=== PATIENT | female | born 1990 | race Caucasian/White ===

== ENCOUNTER → 2017-12-23 | Outpatient (REF) | payer OTHER | LOC: M LAB REF 14:47 | DX: J02.9 Acute pharyngitis, unspecified (principal) | CPT/HCPCS: 87070 ==

== ENCOUNTER → 2018-03-17 | Outpatient (CLI) | payer OTHER ==
[2018-03-17 10:40] LABS: HEMOGLOBIN A1c 4.9 %
[2018-03-17 10:54] LABS: ALBUMIN 4.2 GM/DL (3.2-5.2); ALT/SGPT 30 U/L (12-78); BILIRUBIN,TOTAL 0.8 MG/DL (0.2-1.0); BLOOD UREA NITROGEN 10 MG/DL (7-18); CALCIUM LEVEL 9.1 MG/DL (8.5-10.1); CARBON DIOXIDE LEVEL 28 MEQ/L (21-32); CHLORIDE LEVEL 105 MEQ/L (98-107); CREATININE FOR GFR 0.82 MG/DL (0.55-1.30); GLOMERULAR FILTRATION RATE > 60.0 (>60); GLUCOSE, FASTING 94 MG/DL (70-100); POTASSIUM SERUM 4.4 MEQ/L (3.5-5.1); SODIUM LEVEL 140 MEQ/L (136-145); TOTAL PROTEIN 7.3 GM/DL (6.4-8.2)
== END ==
LOC: M SMT 08:53
PROVIDERS: ATTEND Family Medicine
DX: B37.0 Candidal stomatitis (principal)

== ENCOUNTER → 2019-05-01 | Outpatient (REF) | payer OTHER | LOC: M LAB REF 15:26 | PROVIDERS: ATTEND Physician Assistant | DX: J02.9 Acute pharyngitis, unspecified (principal) ==

== ENCOUNTER → 2020-03-18 | Outpatient (CLI) | payer OTHER ==
--- NOTE | 2020-03-18 16:42 | REP ---
INDICATION: EVAL FOR BONE CYST RT BIG TOE. COMPARISON: No comparison imaging is available.. TECHNIQUE: And axial, coronal, and sagittal imaging planes utilized. T1 and T2 weighted scans are included with and without fat saturation in the usual fashion. FINDINGS: There is heterogeneous low T1 and high T2 signal intensity in the distal phalanx of the great toe. There is edematous T2 hyperintensity and T1 hypointensity in the adjacent soft tissues of the great toe. Findings in the bones suggest a fracture with adjacent tissue inflammation. There does appear to be cortical discontinuity. There is only minimal sub ungual edema on STIR images. Most of the extraosseous T2 hyperintensity is in the volar and lateral aspect of the soft tissues of the great toe. Cortical and medullary bone signal intensity is normal in the proximal phalanx and the visualized metatarsals. Second digit is unremarkable. IMPRESSION: There is a complex lesion in the distal phalanx of the great toe with with marrow intraosseous signal intensity abnormality and adjacent extraosseous soft tissue signal intensity abnormality. Healing fracture could have this appearance. Other lesions are difficult to exclude. Comparison with radiographs would be helpful or conceivably CT study with its superior fine bone detail resolution should be performed. <Electronically signed by Liam Morin > 03/18/20 [id number]
== END ==
LOC: M PLARAD 12:14
PROVIDERS: ATTEND Podiatrist Foot & Ankle Surgery
DX: M85.671 Other cyst of bone, right ankle and foot (principal)

== ENCOUNTER → 2020-04-04 | Outpatient (CLI) | payer OTHER ==
[~2020-04-04] MED LIST: ISOVUE-370 76% 100ML VIAL As Ordered ONE
--- NOTE | 2020-04-05 07:01 | REP ---
INDICATION: RT FOOT LESION, ? SOFT TISSUE DENSITY. COMPARISON: MRI dated 03/18/2020 TECHNIQUE: Axial contrast-enhanced images of right foot with coronal and sagittal reformations. 100 cc Isovue 370 intravenous contrast material administered without complication. FINDINGS: The previous MRI demonstrated findings most compatible with a nondisplaced comminuted fracture of the distal phalanx with adjacent soft tissue injury. The current CT demonstrates normal appearance to the 1st toe including the distal phalanx suggesting healed fracture. No associated intra osseous mass lesion or abnormality is identified and no significant surrounding abscess, fluid collection, or soft tissue mass lesion is appreciated. The remainder of the examination is normal. IMPRESSION: Current CT examination demonstrates normal appearance of the 1st toe including distal phalanx and correlation with prior examination of the MRI suggested this to be a nondisplaced fracture. <Electronically signed by Lambert Ng > 04/05/20 [id number]
== END ==
LOC: M RAD 16:54
PROVIDERS: ATTEND Podiatrist Foot & Ankle Surgery
DX: M84.871 Other disorders of continuity of bone, right ankle and foot (principal)
CPT/HCPCS: 73701; Q9967